=== PATIENT | male | born 1980 | race Caucasian/White ===

== ENCOUNTER 2016-04-13 08:32 | Emergency (ER) | payer OTHER ==
[~2016-04-13] VITALS: Ht 175.3 cm; Wt 59.0 kg
[2016-04-13 08:34] VITALS: BP 115/75
--- NOTE | 2016-04-13 08:35 | NUR ---
BIBA BLS TO ER BED 6
--- NOTE | 2016-04-13 08:36 | NUR ---
PT BIBA FOR C/O ANXIETY. HX ANXIETY METHAMPHETAMINE USE .PT STATES HE TOOK METHAMPHETAMINE LAST MONDAY AND YESTERDAY. PER EMS PT WAS FOUND OUTSIDE THE APARTMENT.PT CLAIM THAT HE BROKE UP W/ HIS GIRLFRIEND AND WAS SENT OUT OF THE HOUSE.DENIES CP/SOB AT THIS TIME.PT IS CRYING.COMFORT MEASURES DONE.AAOX4.NO ACUTE DISTRESS NOTED AT THIS TIME. HOB ELEVATED;SAFETY PRECAUTION INSTITUTED. AWARE OF PT'S CONDITION.
--- NOTE | 2016-04-13 08:45 | NUR ---
OFFERED WATER AND JUICE.
--- NOTE | 2016-04-13 08:53 | NUR ---
Patient being evaluated by DR TRINIDAD at bedside.
--- NOTE | 2016-04-13 09:21 | NUR ---
Patient discharged with v/s stable. Written and verbal after care instructions given and explained. Patient alert, oriented and verbalized understanding of instructions. Ambulatory with steady gait. All questions addressed prior to discharge. ID band removed. Patient advised to follow up with PMD. Rx of ATARAX given. Patient educated on indication of medication including possible reaction and side effects.[employer] RESOURCES POCKET GIVEN.ADVISED PT TO REFRAIN FROM USING OF METHAMPETAMINE AND PT AGREED TO IT. Opportunity to ask questions provided and answered.
[2016-04-13 09:23] VITALS: BP 119/75
== END 2016-04-13 09:21 | disposition home or self-care (01) ==
LOC: MED 08:43
DX: F41.9 Anxiety disorder, unspecified (principal); F15.10 Other stimulant abuse, uncomplicated; F17.200 Nicotine dependence, unspecified, uncomplicated